=== PATIENT | female | born 1965 | race Hispanic/Latino ===

== ENCOUNTER → 2018-04-08 | Outpatient (REF) | payer BC ==
[~2018-04-08] MED LIST: DIFLUCAN150 MG PO; FLAGYL500 MG PO; KENALOG15 GM/TUBE EX; MINIVELLE TD; NAPROSYN500 MG PO
== END | disposition home or self-care (01) | DRG 556 ==
LOC: DI 10:37
PROVIDERS: ATTEND Podiatrist Foot & Ankle Surgery
DX: M79.672 Pain in left foot (principal); M77.32 Calcaneal spur, left foot

== ENCOUNTER 2019-10-16 06:52 | Day surgery (SDC) | payer BC ==
[~2019-10-16] VITALS: Ht 160 cm; Wt 80.7 kg
[~2019-10-16 06:52] MED LIST changes: +AMITRIPTYLIN50 MG PO; +ESTRADIOL0.05 MG/24 TD; +MELOXICAM7.5 MG PO
[2019-10-16 10:41] VITALS: BP 133/87
[2019-10-16] MEDS ORDERED: PREVACID15 M2 PO (10:43)
== END 2019-10-16 11:25 | disposition home or self-care (01) | DRG 384 ==
LOC: ENDO 06:52 → ORM 08:45 → ENDO 10:00
PROVIDERS: ATTEND Surgery
PROC: 0DB98ZX Excision of Duodenum, Via Natural or Artificial Opening Endoscopic, Diagnostic (ICD-10-PCS; principal; 2019-10-16)
PROC: 0DB78ZX Excision of Stomach, Pylorus, Via Natural or Artificial Opening Endoscopic, Diagnostic (ICD-10-PCS; 2019-10-16)
PROC: 0DJD8ZZ Inspection of Lower Intestinal Tract, Via Natural or Artificial Opening Endoscopic (ICD-10-PCS; 2019-10-16)
DX: K25.9 Gastric ulcer, unspecified as acute or chronic, without hemorrhage or perforation (principal); K29.50 Unspecified chronic gastritis without bleeding; B96.81 Helicobacter pylori [H. pylori] as the cause of diseases classified elsewhere; K29.80 Duodenitis without bleeding; K57.30 Diverticulosis of large intestine without perforation or abscess without bleeding; K64.8 Other hemorrhoids; Z11.59 Encounter for screening for other viral diseases